=== PATIENT | female | born 1970 | race Caucasian/White ===

== ENCOUNTER 2018-11-09 14:27 | Emergency (ER) | payer OTHER, SELFPAY ==
[2018-11-09 14:32] VITALS: BP 110/73; PULSE 102; RESP 24; TEMP 37.7; O2SAT 97; BMI 55.7
[2018-11-09 15:11] VITALS: PULSE 106; RESP 20; O2SAT 95
--- NOTE | 2018-11-09 15:11 | DI.RAD.S_ITS ---
PROCEDURE: XR CHEST 2V INDICATIONS: cough, shortness of breath TECHNIQUE: 2 views of the chest were acquired. COMPARISON: None. FINDINGS: Surgical changes and devices: None. Lungs and pleura: Lungs are clear. No pleural effusions or pneumothorax. Mediastinum: Mediastinal contours are normal. Heart size is normal. Bones and chest wall: No suspicious bony abnormalities. Soft tissues appear unremarkable. IMPRESSION: Mildly reduced inspiratory volume, source of cough is not found. Dictated by: Jez Hernandez M.D. on 11/09/2018 at 15:54 Approved by: Jez Hernandez M.D. on 11/09/2018 at 15:54
--- NOTE | 2018-11-09 15:14 | ED_ITS ---
HPI - URI/Sore Throat <Jocelyn Piedra, [employer]-BC - Last Filed: 11/09/18 20:02> General Chief Complaint: Upper Respiratory Symptoms Stated Complaint: sob, body aches, irregular heart rate Time Seen by Provider: 11/09/18 14:58 Source: patient Mode of arrival: ambulatory Limitations: no limitations History of Present Illness HPI Narrative: The patient is a 48-year-old smoker with history of type 2 diabetes who presents with a chief complaint of a productive cough, body aches chills fever that started yesterday. She states she is having a hard time breathing. She does have a history of pneumonia and bronchitis. She denies any fevers vomiting or diarrhea. She denies any sore throat or ear pain. she is concerned about fluid as well as pneumonia. She states that her heart rate was irregular per radial pulse palpation at the walk-in clinic, so she was sent to the emergency department. Patient states she is being worked up for possible COPD. She is a current everyday smoker. She states she is not taking Geodon at this point time. Related Data Home Medications Medication Instructions Recorded Confirmed albuterol sulfate [ProAir HFA] 1 puff INHALATION PRN PRN 11/09/18 11/09/18 buspirone 20 mg PO BID 11/09/18 11/09/18 exenatide microspheres [Bydureon] 2 mg SUBCUT QWEEK 11/09/18 11/09/18 furosemide 20 mg PO DAILY 11/09/18 11/09/18 gabapentin 1,200 mg PO BID 11/09/18 11/09/18 gabapentin 600 mg PO QPM 11/09/18 11/09/18 lamotrigine 200 mg PO DAILY 11/09/18 11/09/18 lisinopril 40 mg PO DAILY 11/09/18 11/09/18 metformin 1,000 mg PO BID 11/09/18 11/09/18 omeprazole 40 mg PO DAILY 11/09/18 11/09/18 potassium chloride 20 meq PO DAILY 11/09/18 11/09/18 triamcinolone acetonide 1 applic TOPICAL DIRECTED 11/09/18 11/09/18 venlafaxine 300 mg PO DAILY 11/09/18 11/09/18 ziprasidone HCl 60 mg PO BID 11/09/18 11/09/18 Previous Rx's Medication Instructions Recorded azithromycin See Rx Instructions .ROUTE 11/09/18 .COMPLEX #6 tab prednisone 50 mg PO DAILY #5 tab 11/09/18 Allergies Allergy/AdvReac Type Severity Reaction Status Date / Time doxycycline [DOXYCYCLINE] Allergy Severe NAUSEA Verified 11/09/18 16:41 adhesive [ADHESIVE] Allergy Mild TAPE: Verified 11/09/18 16:41 TEARS SKIN codeine [CODEINE] Allergy Mild STOMACH Verified 11/09/18 16:41 PAIN morphine [MORPHINE] Allergy Mild VIOLENT Verified 11/09/18 16:41 ACTIONS Review of Systems <GODFREY Tran - Last Filed: 11/09/18 20:02> Review of Systems GENERAL: See HPI a HEENT: Denies sinus pain, ear pain, sore throat, difficulty swallowing, dizziness. RESPIRATORY: See HPI CARDIOVASCULAR: Denies chest pain, palpitations, orthopnea, edema, GASTROINTESTINAL: Denies nausea, vomiting, abdominal pain, diarrhea, constipation, melena. : Denies dysuria, frequency, incontinence, hematuria, urinary retention. MUSCULOSKELETAL: denies weakness, joint pain, or bony pain SKIN: Denies rash, skin lesions, or other NEUROLOGIC: Denies weakness, headache, numbness, change in speech, confusion, seizures, incoordination. PSYCHIATRIC: No concerning psychosocial issues. 12 point review of systems is negative except for those stated above PFSH <GODFREY Tran - Last Filed: 11/09/18 20:02> Surgical History (Updated 11/30/17 @ 05:43 by Sylvia Valencia MD) Status post delivery Social History Smoking Status: Current every day smoker Social History Smoking Status: Current every day smoker Exam <LORENZO Tran- - Last Filed: 11/09/18 20:02> Narrative Exam Narrative: GENERAL: Obese female sitting on stretcher HEAD: Atraumatic. Normocephalic. No temporal or scalp tenderness. EYES: Pupils equal round and reactive. Extraocular motions intact. No scleral icterus. No injection or drainage. ENT: Nose without bleeding, purulent drainage or septal hematoma. Throat without erythema, tonsillar hypertrophy or exudate. Uvula midline. Airway patent. NECK: Trachea midline. No JVD or lymphadenopathy. Supple, nontender, no meningeal signs. CARDIOVASCULAR: Regular rate and rhythm without murmurs, gallops, or rubs. RESPIRATORY: Clear to auscultation. bilateral expiratory wheezes at bases. No retractions, accessory muscle use. Able to speak in full sentences. Cough noted on exam. GASTROINTESTINAL: Abdomen soft, non-tender, nondistended. No hepato- splenomegaly, or palpable masses. No guarding. EXTREMITIES: No clubbing, cyanosis, or edema. No joint tenderness, effusion, or edema noted. BACK: Nontender without deformity or crepitance. No flank tenderness. NEURO: AOx3. SKIN: No rash or erythema. Initial Vital Signs Initial Vital Signs: Vital Signs Temperature 99.9 F H 11/09/18 14:32 Pulse Rate 102 H 11/09/18 14:32 Respiratory Rate 24 11/09/18 14:32 Blood Pressure 110/73 11/09/18 14:32 Pulse Oximetry 97 11/09/18 14:32 <Adam Moreno DO - Last Filed: 11/12/18 18:27> Initial Vital Signs Initial Vital Signs: Vital Signs Temperature 99.9 F H 11/09/18 14:32 Pulse Rate 102 H 11/09/18 14:32 Respiratory Rate 24 11/09/18 14:32 Blood Pressure 110/73 11/09/18 14:32 Pulse Oximetry 97 11/09/18 14:32 Course <LETY Tran - Last Filed: 11/09/18 20:02> Orders Ordered: Discontinued Medications Albuterol/Ipratropium (Duoneb) 3 ml INH NOW ONE Stop: 11/09/18 15:17 Last Admin: 11/09/18 15:18 Dose: 3 ml Ketorolac Tromethamine (Toradol) 30 mg IM NOW ONE Stop: 11/09/18 16:30 Last Admin: 11/09/18 16:44 Dose: 30 mg Prednisone (Deltasone) 60 mg PO NOW ONE Stop: 11/09/18 16:30 Last Admin: 11/09/18 16:45 Dose: 60 mg Vital Signs - 8 hr 11/09/18 14:32 11/09/18 15:11 11/09/18 15:18 Temperature 99.9 F H Pulse Rate 102 H 106 H 89 Respiratory Rate 24 20 16 Blood Pressure 110/73 Blood Pressure [Right Arm] Pulse Oximetry 97 95 97 11/09/18 15:26 Temperature Pulse Rate 93 H Respiratory Rate 20 Blood Pressure Blood Pressure [Right Arm] 119/71 Pulse Oximetry 94 <Adam Moreno DO - Last Filed: 11/12/18 18:27> Orders Ordered: Discontinued Medications Albuterol/Ipratropium (Duoneb) 3 ml INH NOW ONE Stop: 11/09/18 15:17 Last Admin: 11/09/18 15:18 Dose: 3 ml Ketorolac Tromethamine (Toradol) 30 mg IM NOW ONE Stop: 11/09/18 16:30 Last Admin: 11/09/18 16:44 Dose: 30 mg Prednisone (Deltasone) 60 mg PO NOW ONE Stop: 11/09/18 16:30 Last Admin: 11/09/18 16:45 Dose: 60 mg Vital Signs - 8 hr 11/09/18 14:32 11/09/18 15:11 11/09/18 15:18 Temperature 99.9 F H Pulse Rate 102 H 106 H 89 Respiratory Rate 24 20 16 Blood Pressure 110/73 Blood Pressure [Right Arm] Pulse Oximetry 97 95 97 11/09/18 15:26 Temperature Pulse Rate 93 H Respiratory Rate 20 Blood Pressure Blood Pressure [Right Arm] 119/71 Pulse Oximetry 94 MDM - URI/Sore Throat <LETY Tran - Last Filed: 11/09/18 20:02> Lab Data Lab Results 11/09/18 Range/Units 14:44 Influenza A & B (PCR) Negative (Negative) Imaging Data Chest x-ray: Radiologist's impression: [address] [address] XRay Report Signed Patient: Shania Mc LMR#: [id number] : 1970Acct:[id number] Age/Sex: 48 / FDate of Service: 11/09/18 Loc: ED Accession Number: [id number] Procedure: XR chest 2V Ordering Provider: Jocelyn Piedra PROCEDURE: XR CHEST 2V INDICATIONS: cough, shortness of breath TECHNIQUE: 2 views of the chest were acquired. COMPARISON: None. FINDINGS: Surgical changes and devices: None. Lungs and pleura: Lungs are clear. No pleural effusions or pneumothorax. Mediastinum: Mediastinal contours are normal. Heart size is normal. Bones and chest wall: No suspicious bony abnormalities. Soft tissues appear unremarkable. IMPRESSION: Mildly reduced inspiratory volume, source of cough is not found. Dictated by: Jez Hernandez M.D. on 11/09/2018 at 15:54 Approved by: Jez Hernandez M.D. on 11/09/2018 at 15:54 ECG Data Attestation: I personally reviewed and interpreted this ECG as follows: Interpretation: Sinus tachycardia. Ventricular rate 102. Single PVC noted. No ST elevation or depression. MDM Narrative Medical decision making narrative: The patient is a 48-year-old female who presents with a chief complaint of cough and congestion. She had normal EKG. She was told that she had an irregular heart rate earlier, but is sinus on EKG and on exam. Given her increased sputum production, shortness of breath and wheezing combined with her being worked up for possible COPD, I have elected to treat her as a COPD exacerbation. She was given a nebulizer treatment the emergency department as well as steroids. I am discharging her with azithromycin, steroids as well as continued use of her albuterol inhaler. She has received spacer teaching in the emergency department. She was hemody namically stable throughout her stay in the ER. Discussed return precautions of increased work of breathing, shortness of breath concern of heart attack or stroke. Patient has no questions or concerns upon discharge. <Adam Moreno, DO - Last Filed: 11/12/18 18:27> Lab Data Lab Results 11/09/18 Range/Units 14:44 Influenza A & B (PCR) Negative (Negative) Discharge Plan Departure Patient Disposition: Home Clinical Impression: Lung infection Discharge Date/Time: 11/09/18 17:20 Interventions: ED Discharge Assessment Last Done: 11/09/18 17:20 Instructions: DI for Acute Bronchitis Activity Restrictions/Additional Instructions: I am starting you on antibiotics and steroids for your breathing problems. Please follow up with your primary care provider. I am treating you like a COPD exacerbation. Please come back to emergency department for any acute concerns such as concern for heart attack or stroke. Please continue to take her inhaler as needed. We have provided you with a spacer. Prescriptions: New prednisone 50 mg tablet 50 mg PO DAILY Qty: 5 RF: 0 azithromycin 250 mg tablet See Rx Instructions .ROUTE .COMPLEX Qty: 6 RF: 0 No Action gabapentin 600 mg tablet 1,200 mg PO BID RF: 0 lamotrigine 200 mg tablet 200 mg PO DAILY RF: 0 venlafaxine 150 mg capsule,extended release 24hr 300 mg PO DAILY RF: 0 omeprazole 40 mg capsule,delayed release(DR/EC) 40 mg PO DAILY RF: 0 triamcinolone acetonide 0.1 % cream 1 applic topical DIRECTED RF: 0 metformin 1,000 mg tablet 1,000 mg PO BID RF: 0 furosemide 20 mg tablet 20 mg PO DAILY RF: 0 albuterol sulfate [ProAir HFA] 90 mcg/actuation HFA aerosol inhaler 1 puff Inhalation PRN PRN (Reason: Shortness Of Breath) RF: 0 ziprasidone HCl 60 mg capsule 60 mg PO BID RF: 0 lisinopril 40 mg tablet 40 mg PO DAILY RF: 0 potassium chloride 10 mEq tablet,ER particles/crystals 20 meq PO DAILY RF: 0 Bydureon 2 mg/0.65 mL pen injector 2 mg subcut QWEEK RF: 0 buspirone 10 MG tablet 20 mg PO BID RF: 0 gabapentin 600 mg tablet 600 mg PO QPM RF: 0 <Adam Moreno, DO - Last Filed: 11/12/18 18:27> [facility] ED Attending Gabe Attestation: I was available for consultation during this patient's emergency department encounter
[2018-11-09 15:18] VITALS: PULSE 89; RESP 16; O2SAT 97
[2018-11-09] MEDS: ALBUTEROL/IPRATROPIUM 3 ML AMPUL INH (15:18)
[2018-11-09 15:22] LABS: Influenza A and B by PCR Rapid Negative (Negative)
[2018-11-09 15:26] VITALS: BP 119/71; PULSE 93; RESP 20; O2SAT 94
[2018-11-09] MEDS: KETOROLAC 60 MG/2 ML VIAL 30 MG IM (16:44)
[2018-11-09] MEDS: predniSONE 20 MG TABLET 60 MG PO (16:45)
== END 2018-11-09 17:20 | disposition home or self-care (01) ==
PROVIDERS: Emergency Medicine; Emergency Provider Nurse Practitioner Family
DX: J18.9 Pneumonia, unspecified organism (principal)
CPT/HCPCS: 71046; 87400; 93005; 93010; 94640; 99282; 99284; J1885